=== PATIENT | female | born 1970 | race Caucasian/White ===

== ENCOUNTER 2019-05-31 18:59 | Emergency (ER) | payer SELFPAY ==
[~2019-05-31] VITALS: Ht 162.6 cm; Wt 80.8 kg
[2019-05-31 19:10] VITALS: BP 105/66
[2019-05-31 19:14] VITALS: BP 105/66
--- NOTE | 2019-05-31 19:14 | NUR ---
49 Y/O F PRESENTED TO ED WITH C/O L ARM PAIN X1DAY. PAIN RADIATES TO L ELBOW. 8/10 PAIN, SHARP AND THROBBING. NO INJURY. PER PT "I JUST WOKE UP AND IT HURT BADLY." +CMS. L SHOULDER TENDER TO TOUCH. FULL ROM BUT DISPLAYS FACIAL GRIMACING DURING MOVEMENT. SELF MEDICATED WITH IBUPORFEN 600MG AND CBD OIL AT 1600, WITH NO RELIEF. BED IN LOWEST POSTION. ERMD NOTIFIED. WILL CONTINUE TO MONITOR.
[2019-05-31] MEDS ORDERED: KETOROLAC 60 MG/2 ML VIAL IM ONE (19:45)
--- NOTE | 2019-05-31 20:01 | NUR ---
PT WAS GIVEN A SLING TO IMOBOLIZE HER LEFT SHOULDER PTS [facility] ARE WNL
--- NOTE | 2019-05-31 20:01 | NUR ---
Patient discharged with v/s stable. Written and verbal after care instructions given and explained. Patient alert, oriented and verbalized understanding of instructions. Ambulatory with steady gait. All questions addressed prior to discharge. ID band removed. Patient advised to follow up with PMD. Rx of Motrin and Tramadol given. Patient educated on indication of medication including possible reaction and side effects. Opportunity to ask questions provided and answered.
== END 2019-05-31 20:01 | disposition home or self-care (01) ==
LOC: MED 18:59
DX: S46.912A Strain of unspecified muscle, fascia and tendon at shoulder and upper arm level, left arm, initial encounter (principal); E11.9 Type 2 diabetes mellitus without complications; Z88.5 Allergy status to narcotic agent; Z88.6 Allergy status to analgesic agent; X58.XXXA Exposure to other specified factors, initial encounter; Y93.89 Activity, other specified; Y92.89 Other specified places as the place of occurrence of the external cause; Y99.8 Other external cause status
CPT/HCPCS: 96372; 99283; J1885